=== PATIENT | male | born 1970 | race Caucasian/White ===

== ENCOUNTER 2024-07-12 15:41 | Emergency (ER) | payer BC ==
[~2024-07-12] VITALS: Ht 175.3 cm; Wt 83.9 kg
[~2024-07-12 15:41] MED LIST: ACETAMINOPHEN325 M1 PO; NO HOME MEDS; ONDANSETRON ODT4 MG PO
[2024-07-12 16:30] VITALS: PULSE 100; RESP 16; TEMP 97.8; O2SAT 97
[2024-07-12] MEDS ORDERED: TRIAMCINOLONE A15 G1 TOP (16:53)
== END 2024-07-12 16:55 | disposition home or self-care (01) ==
LOC: ER 16:53
DX: R21 Rash and other nonspecific skin eruption (principal)
CPT/HCPCS: 99283